=== PATIENT | male | born 1995 | race Caucasian/White ===

== ENCOUNTER 2017-12-09 01:58 | Emergency (ER) | payer SELFPAY ==
[~2017-12-09] VITALS: Ht 180.3 cm; Wt 124.7 kg
[~2017-12-09 01:58] MED LIST: AMOX500T10 PO; HYDR-3078 PO; LORA-1456 PO
--- NOTE | 2017-12-09 02:04 | ER Report ---
History and Physical Time Seen By MD: 02:04 HPI/ROS CHIEF COMPLAINT: Suicidal attempt, overdose. The bottle of NyQuil HISTORY OF PRESENT ILLNESS: 22-year-old male brought in by a friend with concerns about suicidal ideation. Patient admits he drank a bottle of NyQuil that was nearly full approximate 2 hours ago. Patient reports he's been depressed for some time. He states he's been having financial problems. Patient denies alcohol ingestion or other substances. Patient denies vomiting. REVIEW OF SYSTEMS: Respiratory: No cough, no dyspnea. Cardiovascular: No chest pain, no palpitations. Gastrointestinal: No vomiting, no abdominal pain. Musculoskeletal: No back pain. Allergies: Coded Allergies: No Known Drug Allergies (Verified , 12/09/17) Home Meds Reported Medications Acetaminophen With Codeine # 3 (TYLENOL WITH CODEINE #3 TABLET) 1 Each Tablet, 1 EACH PO Q4-6H Y for PAIN, TAB 12/09/17 Cephalexin Monohydrate (CEPHALEXIN) 500 Mg Cap, 500 MG PO TID, CAP 12/09/17 Discontinued Reported Medications Acetaminophen (TYLENOL) 325 Mg Tablet, 325 MG PO, TAB 12/09/17 Discontinued Scripts Amoxicillin 500 Mg Tab (AMOXICILLIN 500 MG TAB) 500 Mg Tablet, 1 TAB PO Q8H, # 21 TAB Prov:DARIEL MCKEEP 11/06/17 Past Medical/Surgical History Anxiety Reviewed Nurses Notes: Yes Old Medical Records Reviewed: Yes Hx Substance Use Disorder: Yes (dwight) Constitutional Vital Sign - Last 24 Hours 12/09/17 12/09/17 12/09/17 12/09/17 02:16 02:30 02:40 03:00 Temp 98.2 Pulse 75 ??? 75 Resp 16 7 B/P (MAP) 147/88 132/87 (102) 131/93 (106) Pulse Ox 96 96 12/09/17 12/09/17 12/09/17 12/09/17 03:15 03:30 03:45 04:00 Pulse 66 51 61 53 Resp 13 B/P (MAP) 111/61 (78) 130/87 (101) Pulse Ox 96 94 97 94 12/09/17 12/09/17 12/09/17 12/09/17 04:15 04:30 04:45 05:00 Pulse ??? 51 54 ??? Resp 48 55 B/P (MAP) 132/96 (108) Pulse Ox 95 96 Physical Exam General Appearance: The patient is alert, has no immediate need for airway protection and no current signs of toxicity. Vital signs stable, afebrile, pulse ox normal. HEENT: Pupils equal and round no injection. Oropharynx no redness or exudate, mucous. Membranes are moist Respiratory: Chest is non tender, lungs are clear to auscultation. Cardiac: regular rate and rhythm Gastrointestinal: Abdomen is soft and non tender, no masses, bowel sounds normal. Musculoskeletal: Neck: Neck is supple and non tender. Extremities have full range of motion and are non tender. Skin: No rashes or lesions. DIFFERENTIAL DIAGNOSIS: After history and physical exam differential diagnosis was considered for depression including functional and major depression, situational depression, medication side effect, suicidal ideation, suicidal attempt, overdose, drugs and alcohol abuse. Medical Decision Making Data Points Result Diagram: 12/09/17 0235 12/09/17 0235 Laboratory Hematology Test 12/09/17 02:35 12/09/17 02:41 Red Blood Count 5.35 M/uL (4.00-5.60) Mean Corpuscular Volume 85.6 fL (80.0-96.0) Mean Corpuscular Hemoglobin 29.9 pg (26.0-33.0) Mean Corpuscular Hemoglobin Concent 34.9 g/dL (32.0-36.0) Red Cell Distribution Width 14.0 % (11.5-14.5) Mean Platelet Volume 6.4 fL (7.2-11.1) Neutrophils (%) (Auto) 59.9 % (39.4-72.5) Lymphocytes (%) (Auto) 30.1 % (17.6-49.6) Monocytes (%) (Auto) 8.8 % (4.1-12.4) Eosinophils (%) (Auto) 0.6 % (0.4-6.7) Basophils (%) (Auto) 0.6 % (0.3-1.4) Nucleated RBC Relative Count (auto) 0.0 /100WBC Neutrophils # (Auto) 7.6 K/uL (2.0-7.4) Lymphocytes # (Auto) 3.8 K/uL (1.3-3.6) Monocytes # (Auto) 1.1 K/uL (0.3-1.0) Eosinophils # (Auto) 0.1 K/uL (0.0-0.5) Basophils # (Auto) 0.1 K/uL (0.0-0.1) Nucleated RBC Absolute Count (auto) 0.00 K/uL Sodium Level 139 mmol/L (137-145) Potassium Level 3.8 mmol/L (3.5-5.0) Chloride Level 104 mmol/L (98-107) Carbon Dioxide Level 24 mmol/L (22-30) Blood Urea Nitrogen 12 mg/dl (9-21) Creatinine 0.70 mg/dl (0.66-1.25) Glomerular Filtration Rate Calc > 60.0 Random Glucose 103 mg/dl (75-110) Calcium Level 9.5 mg/dl (8.4-10.2) Magnesium Level 1.7 mg/dl (1.7-2.2) Total Bilirubin 0.5 mg/dl (0.2-1.3) Aspartate Amino Transf (AST/SGOT) 41 U/L (0-35) Alanine Aminotransferase (ALT/SGPT) 78 U/L (0-56) Alkaline Phosphatase 78 U/L (0-126) Total Protein 7.0 gm/dl (6.3-8.2) Albumin 3.9 g/dl (3.5-5.0) Thyroid Stimulating Hormone (TSH) 2.58 uIU/ml (0.46-4.68) Salicylates Level < 10 mg/L Salicylate Last Dose Date unk Acetaminophen Level 19 ug/ml Serum Alcohol < 10 mg/dl Urine Color Yellow Urine Clarity Clear Urine pH 5.0 pH (4.8-9.5) Urine Specific [place] 1.028 Urine Protein Negative mg/dL (NEGATIVE) Urine Glucose (UA) Negative mg/dL (NEGATIVE) Urine Ketones Negative mg/dL (NEGATIVE) Urine Blood Negative (NEGATIVE) Urine Nitrite Negative (NEGATIVE) Urine Bilirubin Negative (NEGATIVE) Urine Urobilinogen 4.0 mg/dL (0.2-1.9) Urine Leukocyte Esterase Negative (NEGATIVE) Urine RBC None /HPF (0-2/HPF) Urine WBC <1 /HPF (0-5/HPF) Urine Squamous Epithelial Cells None /LPF (</=FEW) Urine Bacteria Negative /HPF (NONE-FEW) Urine Mucus None /HPF (NONE-FEW) Urine Opiates Screen Positive Urine Barbiturates Screen Negative Ur Tricyclic Antidepressants Screen Negative Urine Phencyclidine Screen Negative Urine Amphetamines Screen Negative Urine Benzodiazepines Screen Negative Urine Cocaine Screen Negative Urine Cannabinoids Screen Positive Chemistry Test 12/09/17 02:35 12/09/17 02:41 White Blood Count 12.7 k/uL (4.5-11.0) Red Blood Count 5.35 M/uL (4.00-5.60) Hemoglobin 16.0 g/dL (14.0-18.0) Hematocrit 45.8 % (42.0-52.0) Mean Corpuscular Volume 85.6 fL (80.0-96.0) Mean Corpuscular Hemoglobin 29.9 pg (26.0-33.0) Mean Corpuscular Hemoglobin Concent 34.9 g/dL (32.0-36.0) Red Cell Distribution Width 14.0 % (11.5-14.5) Platelet Count 198 K/uL (150-450) Mean Platelet Volume 6.4 fL (7.2-11.1) Neutrophils (%) (Auto) 59.9 % (39.4-72.5) Lymphocytes (%) (Auto) 30.1 % (17.6-49.6) Monocytes (%) (Auto) 8.8 % (4.1-12.4) Eosinophils (%) (Auto) 0.6 % (0.4-6.7) Basophils (%) (Auto) 0.6 % (0.3-1.4) Nucleated RBC Relative Count (auto) 0.0 /100WBC Neutrophils # (Auto) 7.6 K/uL (2.0-7.4) Lymphocytes # (Auto) 3.8 K/uL (1.3-3.6) Monocytes # (Auto) 1.1 K/uL (0.3-1.0) Eosinophils # (Auto) 0.1 K/uL (0.0-0.5) Basophils # (Auto) 0.1 K/uL (0.0-0.1) Nucleated RBC Absolute Count (auto) 0.00 K/uL Glomerular Filtration Rate Calc > 60.0 Calcium Level 9.5 mg/dl (8.4-10.2) Magnesium Level 1.7 mg/dl (1.7-2.2) Total Bilirubin 0.5 mg/dl (0.2-1.3) Aspartate Amino Transf (AST/SGOT) 41 U/L (0-35) Alanine Aminotransferase (ALT/SGPT) 78 U/L (0-56) Alkaline Phosphatase 78 U/L (0-126) Total Protein 7.0 gm/dl (6.3-8.2) Albumin 3.9 g/dl (3.5-5.0) Thyroid Stimulating Hormone (TSH) 2.58 uIU/ml (0.46-4.68) Salicylates Level < 10 mg/L Salicylate Last Dose Date unk Acetaminophen Level 19 ug/ml Serum Alcohol < 10 mg/dl Urine Color Yellow Urine Clarity Clear Urine pH 5.0 pH (4.8-9.5) Urine Specific [place] 1.028 Urine Protein Negative mg/dL (NEGATIVE) Urine Glucose (UA) Negative mg/dL (NEGATIVE) Urine Ketones Negative mg/dL (NEGATIVE) Urine Blood Negative (NEGATIVE) Urine Nitrite Negative (NEGATIVE) Urine Bilirubin Negative (NEGATIVE) Urine Urobilinogen 4.0 mg/dL (0.2-1.9) Urine Leukocyte Esterase Negative (NEGATIVE) Urine RBC None /HPF (0-2/HPF) Urine WBC <1 /HPF (0-5/HPF) Urine Squamous Epithelial Cells None /LPF (</=FEW) Urine Bacteria Negative /HPF (NONE-FEW) Urine Mucus None /HPF (NONE-FEW) Urine Opiates Screen Positive Urine Barbiturates Screen Negative Ur Tricyclic Antidepressants Screen Negative Urine Phencyclidine Screen Negative Urine Amphetamines Screen Negative Urine Benzodiazepines Screen Negative Urine Cocaine Screen Negative Urine Cannabinoids Screen Positive Toxicology Test 12/09/17 02:35 12/09/17 02:41 Salicylates Level < 10 mg/L Salicylate Last Dose Date unk Acetaminophen Level 19 ug/ml Serum Alcohol < 10 mg/dl Urine Opiates Screen Positive Urine Barbiturates Screen Negative Ur Tricyclic Antidepressants Screen Negative Urine Phencyclidine Screen Negative Urine Amphetamines Screen Negative Urine Benzodiazepines Screen Negative Urine Cocaine Screen Negative Urine Cannabinoids Screen Positive Urinalysis Test 12/09/17 02:41 Urine Color Yellow Urine Clarity Clear Urine pH 5.0 pH (4.8-9.5) Urine Specific [place] 1.028 Urine Protein Negative mg/dL (NEGATIVE) Urine Glucose (UA) Negative mg/dL (NEGATIVE) Urine Ketones Negative mg/dL (NEGATIVE) Urine Blood Negative (NEGATIVE) Urine Nitrite Negative (NEGATIVE) Urine Bilirubin Negative (NEGATIVE) Urine Urobilinogen 4.0 mg/dL (0.2-1.9) Urine Leukocyte Esterase Negative (NEGATIVE) Urine RBC None /HPF (0-2/HPF) Urine WBC <1 /HPF (0-5/HPF) Urine Squamous Epithelial Cells None /LPF (</=FEW) Urine Bacteria Negative /HPF (NONE-FEW) Urine Mucus None /HPF (NONE-FEW) EKG/Imaging EKG Interpretation 12 lead EK Rhythm: normal sinus rhythm with premature atrial complexes [place]: normal QRS: normal ST segments: normal, no tachycardia, no QRS widening, no QT prolongation ED Course/Re-evaluation Clinical Indication for ER IV: Hydration, IV Access ED Course Patient was admitted to an examination room. H&P was done. The differential diagnoses was considered. On clinical examination, patient appears asymptomatic on arrival. He appears quite withdrawn. He is having dental pain in the right lower jaw. He is currently on amoxicillin. She's been taking a fair amount of Tylenol. His overdose gesture was drinking a bottle of NyQuil. However, his Tylenol level is not elevated beyond 19. On repeated to her stomach 14. Expected level of at least 50-100 with that ingestion of Tylenol. Patient's tox screen is positive for opiates, likely secondary to the codeine was prescribed by his dentist for his tooth pain. There is cannabis noted as well. Patient has an EKG performed, which shows a normal sinus rhythm. Without QRS widening or QT prolongation. It is not tachycardic nor is he hypotensive which you would expect with an antihistamine overdose. Patient was monitored in the emergency department for 3 hours and determined to be medically cleared. Case was discussed with Elizabeth Nelson nurse practitioner a behavioral health who accepts him for admission. Patient was placed on emergency residential by myself. 12/09/2017 5:15:19 am case was discussed with Elizabeth Nelson nurse practitioner a behavioral health service who accepts him for admission to [facility]. Decision to Disposition Date: Dec 09, 2017 Decision to Disposition Time: 02:40 Depart Departure Latest Vital Signs Vital Signs Date Time Temp Pulse Resp B/P (MAP) Pulse Ox O2 Delivery O2 Flow Rate FiO2 12/09/17 05:00 ??? 12/09/17 04:45 55 96 12/09/17 04:30 132/96 (108) 12/09/17 02:16 98.2 Impression: Primary Impression: Suicidal ideation Additional Impressions: Overdose Depression Pain, dental Condition: Improved Disposition: XFER TO [facility] Problem Qualifiers Additional Impressions: Overdose Encounter type: initial encounter Injury intent: intentional self-harm Qualified Codes: T50.902A - Poisoning by unspecified drugs, medicaments and biological substances, intentional self-harm, initial encounter Depression Depression Type: unspecified Qualified Codes: F32.9 - Major depressive disorder, single episode, unspecified RADHA BELTRAN DO Dec 09, 2017 02:04
[2017-12-09] MEDS ORDERED: ACET-1966 PO (02:24)
[2017-12-09] MEDS ORDERED: NS(*) 0.9% 1000 ML BAG 1,000 ML IV ONE (02:29)
[2017-12-09 02:43] LABS: PLATELET COUNT, AUTOMATED 198 K/uL (150-450)
--- NOTE | 2017-12-09 02:54 | EKG ---
FACILITY: [facility] PATIENT NAME: EMERITA ESTRELLA : [id number] MR: [id number] V: [id number] EXAM DATE: ORDERING PHYSICIAN: RADHA BELTRAN TECHNOLOGIST: BING Test Reason : OD NYQUIL Blood Pressure : / mmHG Vent. Rate : 063 BPM Atrial Rate : 063 BPM P-R Int : 156 ms QRS Dur : 102 ms QT Int : 398 ms P-R-T Axes : 044 045 052 degrees QTc Int : 407 ms Sinus rhythm with sinus arrhythmia Otherwise normal ECG When compared with ECG of 10-NOV-2016 02:14, Confirmed by RAFAEL CARLSON ([id number]) on 12/09/2017 6:37:53 AM Referred By: Confirmed By:RAFAEL CARLSON
[2017-12-09 04:30] VITALS: BP 132/96
[2017-12-09] MEDS ORDERED: KETOROLAC 30 MG/ML VIAL IVP ONE (05:20)
[2017-12-09] MEDS ORDERED: CEPH500C24 PO (09:29)
[2017-12-09] MEDS ORDERED: ACET-3017 PO (09:29)
== END 2017-12-09 06:03 ==
LOC: ER 02:40
DX: T50.992A Poisoning by other drugs, medicaments and biological substances, intentional self-harm, initial encounter (principal); F32.9 Major depressive disorder, single episode, unspecified; R45.851 Suicidal ideations; K08.89 Other specified disorders of teeth and supporting structures
CPT/HCPCS: 80305; 80320; 80329; 81001; 83735; 84443; 85025; 93005; 96361; 96374; 99285; J1885; J7030; 82040; 82247; 82310; 82374; 82435; 82565; 82947; 84075; 84132; 84155; 84295; 84450; 84460; 84520

== ENCOUNTER 2017-12-09 05:24 | Inpatient (IN) | payer SELFPAY ==
[~2017-12-09] VITALS: Ht 185.4 cm; Wt 124.7 kg
[~2017-12-09 05:24] MED LIST changes: +ACET-1966 PO
[2017-12-09] MEDS ORDERED: MAG HYD/AL HYD/SIMETH 30ML UDC PO PRN (05:40)
[2017-12-09 06:29] VITALS: BP 146/91
[2017-12-09 08:28] VITALS: BP 145/75
[2017-12-09] MEDS: MULTIVITAMINS TAB PO SCH (08:33)
[2017-12-09] MEDS ORDERED: CEPH500C24 PO (09:29)
[2017-12-09] MEDS ORDERED: ACET-3017 PO (09:29)
[2017-12-09 10:27] VITALS: BP 131/81
[2017-12-09] MEDS ORDERED: NICOTINE CARTRIDGE 1 EA PO PRN (12:05)
[2017-12-09] MEDS: NICOTINE INH SYSTEM 10 MG/INH INH PRN ×2 (12:24→18:20)
[2017-12-09 12:40] VITALS: BP 155/84
[2017-12-09] MEDS: LIDOCAINE 2% VISC SLN 15ML UDC PO PRN ×2 (12:47→17:25)
[2017-12-09] MEDS: CEPHALEXIN MONO 500 MG CAP PO SCH ×2 (13:38→21:16)
--- NOTE | 2017-12-09 14:29 | BHS - Psychiatric Evaluation ---
ER - Title 25 MHE Evaluation Title 25 Evaluation Patient Detained By: Physician (Dr Kavon Garza) Referral Source: Professional: ER Dr. Kavon Garza (Initiated by physician). Date Patient Detained: Dec 09, 2017 Time Patient Detained: 05:06 Date Residential Expires: Dec 12, 2017 Time Residential Expires: 05:08 Legal Status: Police Hold: No Legal Status: Residence: [facility] Resident, State Resident Assessment Data Provided By: Patient, Other Source (REPLACED BY [facility] and [facility] staff) HPI/ROS: Per ER Dr, Dr. Kavon Garza, "22-year-old male brought in by a friend with concerns about suicidal ideation. Patient admits he drank a bottle of NyQuil that was nearly full approximate 2 hours ago. Patient reports he's been depressed for some time. He states he's been having financial problems. Patient denies alcohol ingestion or other substances. Patient denies vomiting." Admit due to SI or Attempt: Yes Suicide Plan: Has Plan with Access Alcohol or Drugs Involved: Yes Is Patient Info Reliable: Yes Is Collateral Info Reliable: Yes (3-81, and physician report) Current Home Psych Meds: Patient reports none. Mental Status Exam General Appearance: Casual, Well Groomed, No Good Eye Contact (Downcast gaze) Speech: Clear, Spontaneous, Normal Rate, Normal Volume (Soft and low volume.) Mood: Dysthmic/Depressed Affect: Sad (Slumped shoulders and sad affect.) Thought Process: Organized Thought Content: Suicidal Ideation (Says, "For 3 seconds, I really was." Says he is not suicidal currently.) Cognition: Alert & Oriented-Person, Alert & Oriented-Place, Alert & Oriented- Time, Gfjft-Bvivonwr-[id number] Memory: Immediate, Recent, Remote Insight Judgment: Poor Hallucinations: Denies Delusions: Denies Current Risk & History Current Dangerous Risk Assessm: Current Suicide Ideation (Denies current plan, but is hopeless without futuristic ideation. Says, "Partly unsure if if will ever get better."), Self-Injurious Behaviors (Pinches self while talking, report biting his hand when he is upset, since age 6.) Past Dangerous Risk Assessm: Suicide Ideation-last 6mo (Says he has had depression with suicidal ideation since high school.), Self-Injurious Behaviors (Bites, digs, and piches self when discussing upsetting topics.) Previous Suicide Attempt: No Previous Attempt Previous Psychiatric Illness: Yes (Depression, patient says he has had this experience since high school. Says he does not like himself, and feels as though his poor self esteem is worse than most individuals.) Previous Diagnosis/Treatment: Saw a counselor in high school that he connected to. Previous Psychiatric Treatment: No Risk Assessment & Disposition Evaluated Risk Assessment: Patient risk is high. Denies current plan, but is hopeless without futuristic ideation. Says, "Partly unsure if if will ever get better." He indicates his tooth pain, homelessness, and financial probs do not seem to be solvable. Patient does not have a mental health therapist, and says "most of the time, I feel very isolated." These factors and patient's acknowledgement that he takes more pain medication faster than is indicated, put patient at risk for harming himself. Impression: Primary Impression: Anxiety Additional Impressions: Cannabis dependence Suicidal ideation Tooth abscess Overdose Meets Mental Illness Req.: Yes Meets Dangerousness Req.: Yes (Patient took more NyQuil than is indicated while thinking about ending his life as an intentional overdose.) Emergency Residential to be: Upheld Decision Comment: Patient Bandar Moss is reporting that he does not see a solution to the problems that felt insurmountable and led him to an intentional overdose. Patient took more NyQuil than is indicated while thinking about ending his life. He is without public health social worker or mental health services to help him address his homelessness and financial despair. In a despairing state, patient has demonstrated he is depressed and impulsive. He needs clinical support and resources, as well as a safe environment. Date of Decision: Dec 09, 2017 Time of Decision: 14:20 Patient is Medically Stable at: Yes Disposition: [facility] Problem Qualifiers ROOPA RAMIREZ LPC Dec 09, 2017 14:29
[2017-12-09] MEDS ORDERED: IBUPROFEN 600 MG TAB PO PRN (22:00)
[2017-12-09] MEDS ORDERED: KETOROLAC TROM 10MG TAB PO PRN (22:05)
[2017-12-09 22:30] VITALS: BP 145/100
[2017-12-09] MEDS: KETOROLAC TROM 10MG TAB PO PRN (23:02)
[2017-12-10 04:26] VITALS: BP 136/86
[2017-12-10 06:17] LABS: PLATELET COUNT, AUTOMATED 175 K/uL (150-450)
[2017-12-10] MEDS: KETOROLAC TROM 10MG TAB PO PRN ×4 (07:38→22:04)
[2017-12-10] MEDS: MULTIVITAMINS TAB PO SCH (08:54)
[2017-12-10] MEDS: CEPHALEXIN MONO 500 MG CAP PO SCH ×3 (08:54→21:44)
[2017-12-10] MEDS: NICOTINE INH SYSTEM 10 MG/INH INH PRN ×2 (08:56→16:25)
[2017-12-10 11:17] VITALS: BP 129/70
--- NOTE | 2017-12-10 12:30 | BHS Progress Note ---
S - Subjective Progress Notes Subjective Patient interacting well this AM, and states his decompensating mood was likely triggered by tooth pain and opiate use. Appetite good, and low mood improving, patient admits to using substances inappropriately throughout his life. Will continue treatment, and avoid starting any psychiatric medications now, as will address as an outpatient after tooth abscess is treated. No other concerns today. Suicidal Ideation: Resolving Homicidal Ideation: None [facility] - Objective Physical Exam Vital Signs Vital Signs Date Time Temp Pulse Resp B/P (MAP) Pulse Ox O2 Delivery O2 Flow Rate FiO2 12/10/17 11:17 98.4 56 129/70 (89) 94 Room Air 12/10/17 04:26 16 Hematology Test 12/09/17 13:08 12/10/17 06:14 Acetaminophen Level < 10 ug/ml Red Blood Count 5.13 M/uL (4.00-5.60) Mean Corpuscular Volume 85.0 fL (80.0-96.0) Mean Corpuscular Hemoglobin 30.2 pg (26.0-33.0) Mean Corpuscular Hemoglobin Concent 35.5 g/dL (32.0-36.0) Red Cell Distribution Width 13.9 % (11.5-14.5) Mean Platelet Volume 6.3 fL (7.2-11.1) Neutrophils (%) (Auto) 46.7 % (39.4-72.5) Lymphocytes (%) (Auto) 42.9 % (17.6-49.6) Monocytes (%) (Auto) 9.4 % (4.1-12.4) Eosinophils (%) (Auto) 0.5 % (0.4-6.7) Basophils (%) (Auto) 0.5 % (0.3-1.4) Nucleated RBC Relative Count (auto) 0.0 /100WBC Neutrophils # (Auto) 5.7 K/uL (2.0-7.4) Lymphocytes # (Auto) 5.3 K/uL (1.3-3.6) Monocytes # (Auto) 1.2 K/uL (0.3-1.0) Eosinophils # (Auto) 0.1 K/uL (0.0-0.5) Basophils # (Auto) 0.1 K/uL (0.0-0.1) Nucleated RBC Absolute Count (auto) 0.01 K/uL Sodium Level 141 mmol/L (137-145) Potassium Level 3.8 mmol/L (3.5-5.0) Chloride Level 106 mmol/L (98-107) Carbon Dioxide Level 25 mmol/L (22-30) Blood Urea Nitrogen 8 mg/dl (9-21) Creatinine 0.70 mg/dl (0.66-1.25) Glomerular Filtration Rate Calc > 60.0 Random Glucose 86 mg/dl (75-110) Calcium Level 9.6 mg/dl (8.4-10.2) Total Bilirubin 0.7 mg/dl (0.2-1.3) Aspartate Amino Transf (AST/SGOT) 27 U/L (0-35) Alanine Aminotransferase (ALT/SGPT) 65 U/L (0-56) Alkaline Phosphatase 72 U/L (0-126) Total Protein 6.6 gm/dl (6.3-8.2) Albumin 3.5 g/dl (3.5-5.0) Chemistry Test 12/09/17 13:08 12/10/17 06:14 Acetaminophen Level < 10 ug/ml White Blood Count 12.3 k/uL (4.5-11.0) Red Blood Count 5.13 M/uL (4.00-5.60) Hemoglobin 15.5 g/dL (14.0-18.0) Hematocrit 43.6 % (42.0-52.0) Mean Corpuscular Volume 85.0 fL (80.0-96.0) Mean Corpuscular Hemoglobin 30.2 pg (26.0-33.0) Mean Corpuscular Hemoglobin Concent 35.5 g/dL (32.0-36.0) Red Cell Distribution Width 13.9 % (11.5-14.5) Platelet Count 175 K/uL (150-450) Mean Platelet Volume 6.3 fL (7.2-11.1) Neutrophils (%) (Auto) 46.7 % (39.4-72.5) Lymphocytes (%) (Auto) 42.9 % (17.6-49.6) Monocytes (%) (Auto) 9.4 % (4.1-12.4) Eosinophils (%) (Auto) 0.5 % (0.4-6.7) Basophils (%) (Auto) 0.5 % (0.3-1.4) Nucleated RBC Relative Count (auto) 0.0 /100WBC Neutrophils # (Auto) 5.7 K/uL (2.0-7.4) Lymphocytes # (Auto) 5.3 K/uL (1.3-3.6) Monocytes # (Auto) 1.2 K/uL (0.3-1.0) Eosinophils # (Auto) 0.1 K/uL (0.0-0.5) Basophils # (Auto) 0.1 K/uL (0.0-0.1) Nucleated RBC Absolute Count (auto) 0.01 K/uL Glomerular Filtration Rate Calc > 60.0 Calcium Level 9.6 mg/dl (8.4-10.2) Total Bilirubin 0.7 mg/dl (0.2-1.3) Aspartate Amino Transf (AST/SGOT) 27 U/L (0-35) Alanine Aminotransferase (ALT/SGPT) 65 U/L (0-56) Alkaline Phosphatase 72 U/L (0-126) Total Protein 6.6 gm/dl (6.3-8.2) Albumin 3.5 g/dl (3.5-5.0) Toxicology Test 12/09/17 13:08 Acetaminophen Level < 10 ug/ml Muscle Strength and Tone: WNL Gait and Station: Steady [facility] Medications Reviewed: Side Effects, Benefits of Medication, Risks Allergies Reviewed: Yes Mental Status Exam General Appearance: Casual, Well Groomed, No Good Eye Contact (Downcast gaze), Cooperative, Polite, Good Interaction, No Unkept, No Tearful, No Psychomotor Agitation, No Psychomotor Retardation, No Bizarre Mannerisms, No Tics Speech: Clear, Spontaneous, Normal Rate, Normal Rhythm, Normal Volume (Soft and low volume.), Normal Tone, No Garbled, No Rambling, No Inappropriate Mood: Dysthmic/Depressed (improving some) Affect: Sad (Slumped shoulders and sad affect.), No Flat, No Withdrawn, No Tearful, No Anxious, No Agitated Thought Process: Organized, Logical, Goal Directed, No Loose Associations, No Flight of Ideas Thought Content: Suicidal Ideation (resolving ), No Homicidal Ideation, No Delusions, No Auditory Halllucinations, No Visual Hallucinations, No Thought Broadcasting, No Ideas of Reference, No Obsessions, No Compulsions Sensorium: Clear Cognition: Alert & Oriented-Person, Alert & Oriented-Place, Alert & Oriented- Time, Sgsve-[id number]-[id number] Memory: Immediate, Recent, Remote Intelligence: Average Insight Judgment: Poor Result Diagram: 12/10/17 0614 12/10/17 0614 [facility] Assessment and Plan [id number] Encounter Date: Dec 10, 2017 [id number] Encounter Time: 10:30 [facility] Plan: Necessary Precautions, Individual/Group Therapy, Admin/Titrate Meds, Educate Patient Tobacco Medications: Not Appropriate Condition Problems: (1) Adjustment disorder with depressed mood Status: Acute Assessment & Plan: rule out persisting depressive disorder. (2) Cannabis dependence Status: Chronic Condition 1. continue treatment. 2. plan for discharge tomorrow. MANJU TRONCOSO MD Dec 10, 2017 12:30
[2017-12-10 15:55] VITALS: BP 127/68
--- NOTE | 2017-12-10 17:02 | HISTORY AND PHYSICAL ---
DATE OF ADMISSION: December 09, 2017 DATE PATIENT SEEN: December 09, 2017 at 0915 PRESENTING PROBLEM/CHIEF COMPLAINT "I have an infection, a bad tooth. I had some codeine and an antibiotic prescribed for that. I consumed the codeine more than I should have, but then ran out. The depression and anxiety got worse. It made me think of my problems. It all just added up." HISTORY OF PRESENT ILLNESS This is a 22-year-old, single, male who presented to the Emergency Department after having been brought in by a friend due to suicidal ideation. The patient reported that he drank a bottle of Nyquil that was nearly full approximately two hours prior to arrival. The patient reports a longstanding history of depression which has recently worsened with onset of dental pain, financial stressors, and current living situation. The patient denied ingestion of alcohol or other substances. The patient reports that for the last two weeks he has been living in a motel after having been kicked out by his roommates due to the loss of a job and lack of money to pay rent. He is currently not working with last employment reported as working at [employer] for four months, last working two months ago. The patient denies history of inpatient psychiatric hospitalizations or suicide attempts. He denies suicidal ideation at time of initial interview, reporting last suicidal thoughts were at the time of Nyquil overdose. He reports that at that time he did have thoughts of ending his life. He denies outpatient mental health services, although as a child and young adolescent, he had been seen by a school therapist and outpatient mental health providers for self-harm behaviors of biting. The patient reports some ongoing biting behaviors, although he states he has poor memory when this occurs. No evidence of recent biting behaviors on extremities noted. The patient is rating his depression, guilt, and shame an eight on a one to ten scale, ten the worst. He is rating anxiety a four and anger a five. He reports sleep as sufficient. He denies a history of pawan or psychosis. Energy level is low. Appetite is good. He states he is trying to lose weight. He denies a history of eating disorder symptoms. He denies PTSD symptoms. He denies history of physical, emotional, or sexual abuse. The patient was positive for opiates and cannabinoids. He has recently seen a dentist with pain medication prescribed and reports smoking marijuana two times per week. In the past, it was more frequent. He denies regular alcohol use. The patient states members of the [employer] are currently helping him pay the motel bill. His father currently lives in [place], and he does maintain contact with him. The patient was emergently detained in the Emergency Department and transferred to the Behavioral Health Unit for further evaluation and treatment. MENTAL HEALTH HISTORY The patient denies history of inpatient psychiatric hospitalizations or suicide attempts. He denies previously taking psychotropics. He has a history of being seen as a child and early adolescent for biting behaviors by school counselors and private mental health providers. No recent mental health treatment. FAMILY PSYCHIATRIC HISTORY The patient reports that members of his father's family have attempted suicide. He reports that is every male with the exception of his father for five generations. He believes there may have been one completed suicide. MEDICAL HISTORY 1. He denies history of medical concerns or major surgeries. 2. He currently has a right tooth infection. He has been seen by a dentist with followup appointment scheduled this week. CURRENT MEDICATIONS Amoxicillin 500 mg one tab every eight hours. ALLERGIES No known drug allergies. SOCIAL HISTORY The patient was born in [place], [place]. He moved from [place] at age [age]. He was raised primarily by his father. He states that his mother is . She when he was [age] years old after having her windpipe crushed. The patient has three younger half-sisters. His father has remarried and currently lives in [place], [place]. The patient moved to [place] and previously lived in [place], [place]. He reports he is a high school dropout , working on his GED. Highest grade completed was 11th grade. His parents were not at the time of his . He has most recently worked at [employer] two months ago. He was employed for four months. 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 He is currently living in a hotel the last two weeks. Prior to that, he lived in an apartment, although lost his job and could not pay his bills. His roommates kicked him out, and he fell into a slump with increased depression and anxiety. Members of the [employer] have helped with funding the motel room through the end of November. He reports he has never been . He has no children. He is heterosexual. He denies a history of physical, emotional, or sexual abuse. LEGAL HISTORY The patient reports that he has one charge of trying to steal a TV. He had a $ 700 fine and spent one night in alf. He denies being on probation or parole. He denies history of felonies or DUIs. SUBSTANCE ABUSE HISTORY The patient reports that he drinks approximately one time per week. Drink of choice would be rum and Coke. He usually drinks one drink. He denies heavy alcohol use. Cannabis started at age 19. He reports in the past he was a heavier user, although currently uses two times a week. He is positive for cannabinoids. He denies history of other illicit drug use in the past. PHYSICAL EXAMINATION Please see emergency room notes for physical exam. VITAL SIGNS: At time of admission included temperature of 99.2, pulse of 60, respiratory rate 16, blood pressure 146/91, pulse oximetry 94% on room air. LABORATORY DATA CBC with elevated white blood count, 12.7, MPV low at 6.4. Urobilinogen elevated at 4.0. AST elevated at 41, ALT elevated at 78. Thyroid stimulating hormone is pending. Urine screen positive for opioids and cannabinoids. Negative for barbiturates, tricyclics, phencyclidine, amphetamines, benzodiazepines, and cocaine. Serum alcohol level less than 10, acetaminophen level 19 with repeat down to 14. We will continue to monitor. MENTAL STATUS EXAMINATION GENERAL APPEARANCE, BEHAVIOR, AND ATTITUDE: This is a calm, cooperative, 22- year-old, male making poor eye contact at time of interview. He appears depressed. No bizarre mannerisms or tics. SPEECH: Soft spoken. Regular rate, rhythm, and tone. MOOD: Depressed. AFFECT: Minimally constricted, mood congruent. THOUGHT PROCESSES: Logical, goal directed. No loose issues. No flight of ideas. THOUGHT CONTENT: Free of auditory or visual hallucinations, ideas of reference , thought broadcasting, delusions, obsessions, or compulsions. He is denying current suicidal or homicidal ideations. SENSORIUM: Clear. COGNITION: Alert and oriented to person, placed, time, and situation. MEMORY: Immediate, recent, and remote estimated intact. INTELLIGENCE: Average based on interview. INSIGHT AND JUDGMENT: Considered fair. The patient was agreeable with need for hospitalization. ASSESSMENT This is a 22-year-old, single, male who was brought in by a friend after reporting suicidal ideation with ingestion of a bottle of Nyquil. Acetaminophen level initially 19, lowering to 14. We will continue to monitor. At the time of initial interview, the patient denies suicidal or homicidal ideation. He reports recent stress of current living situation as living in a motel, financial stressors, joblessness, and recent onset of right tooth infection causing a great amount of discomfort. He denies previously taking psychotropics, although reports a longstanding history of depression. He reports recently his depression and anxiety worsened. He was given pain medications by a dentist and ran out as he was taking more than prescribed amounts due to ongoing dental pain. He is currently on antibiotics and has a followup appointment this week. He denies a history of inpatient psychiatric hospitalizations or suicide attempts. He uses cannabis two times per week. He denies regular alcohol use. He denies use of other illicit drugs. He was emergently detained by emergency room physician and transferred to the Behavioral Health Unit for further evaluation and treatment. PLAN 1. We will admit to the unit. 2. Necessary precautions will be implemented. 3. Individual and group therapy will be initiated. 4. Medications will be considered and titrated accordingly. 5. Currently, the patient is going to be monitored closely due to reported overdose. 6. Contact outpatient dentist with treatment recommendations. 7. Labs and imaging as appropriate. 8. Estimated length of stay three to five days. DIAGNOSES PER DSM-V 1. Adjustment disorder with depressed mood, suicidal ideation. 2. Persistent depressive disorder. 3. Cannabis use disorder, mild. 4. Problems related to financial stressors, current living situation, joblessness, and onset of dental issues. MARI
[2017-12-10 20:18] VITALS: BP 127/68
[2017-12-11 05:44] VITALS: BP 117/75
[2017-12-11] MEDS: KETOROLAC TROM 10MG TAB PO PRN (07:27)
[2017-12-11] MEDS: CEPHALEXIN MONO 500 MG CAP PO SCH (08:37)
[2017-12-11] MEDS: MULTIVITAMINS TAB PO SCH (08:37)
[2017-12-11] MEDS: NICOTINE INH SYSTEM 10 MG/INH INH PRN (08:39)
[2017-12-11] MEDS ORDERED: MULT-1379 PO (09:58)
[2017-12-11] MEDS ORDERED: NIC10R INH (09:58)
[2017-12-11] MEDS ORDERED: [UNRECOGNIZED DRUG - OTHER] PO (09:59)
[2017-12-11] MEDS ORDERED: OMEG-23 PO (10:01)
[2017-12-11] MEDS ORDERED: CHOL10005 PO (10:01)
[2017-12-11 13:28] VITALS: BP 119/79
--- NOTE | 2017-12-12 19:30 | DISCHARGE SUMMARY ---
DATE OF ADMISSION December 09, 2017 DATE OF DISCHARGE December 11, 2017 FINAL DIAGNOSES PER DSM-V Adjustment disorder with depressed mood. Persisting depressive disorder. Cannabis use disorder moderate. Rule out cannabis-related disorder. Patient currently suffering from dental pain. Employment and financial stressors and housing stressors. REASON FOR ADMISSION This 22-year-old male was interviewed for this discharge summary on the morning of December 11, 2017 at approximately 0900 hours. Please see H and P for full details. This is a cooperative, pleasant 22-year-old male who may suffer from some mild autism-type symptoms as well as persisting depressive disorder. Patient admitted after proclaiming suicidal thoughts in relation to increasing tooth pain. Patient admits to incorrectly taking the opiates given to him by a dentist and then running out of them and experiencing more pain. Patient reports that although he gives a history of persisting depressive disorder, current dental condition where patient is believed to be requiring a root canal is what drove the patient over the edge. Patient was very cooperative and pleasant throughout his stay. Dental appointment was set for patient to go through needed root canal procedure. Patient's mood continued to improve, remained cooperative on the unit, and patient's mood again improved. No further suicidal ideation noted. PHYSICAL EXAMINATION GENERAL: This is a 22-year-old male in no acute medical distress. Patient having notably been seen for a tooth abscess on November 06, 2017 in the ER. VITAL SIGNS: At the time of admission to the emergency room, temperature 98.2, pulse 75, respiratory rate 16, blood pressure 147/88, pulse oximetry 96 on room air. Upon discharge from the Behavioral Health Unit, temperature 98.2, pulse 86 , respiratory rate 16, blood pressure 119/79 and pulse oximetry 93 on room air. LABORATORY DATA CBC on December 10, 2017 notable for WBCs elevated at 12.3. Chemistry panel notable for an ALT slightly elevated at 65. Toxicology screen: Nondetectable acetaminophen level, positive for cannabis, positive for opiates, and previous acetaminophen level rising as high as 19 in this patient who stated he was taking excessive DayQuil. Serum alcohol less than 10. Urinalysis did now urobilinogen present. TSH 2.58. MENTAL STATUS EXAMINATION AT THE TIME OF DISCHARGE GENERAL APPEARANCE, BEHAVIOR AND ATTITUDE: A polite, cooperative 22-year-old male in no acute distress, making good eye contact. No bizarre mannerisms or tics. SPEECH: Within normal limits, regular rate, rhythm volume and tone. MOOD: Described as improved and okay. AFFECT: Minimally constricted and mood congruent overall. THOUGHT PROCESSES: Goal directed. Patient would discharge to the dental office. Logical. No loose associations or flight of ideas. THOUGHT CONTENT: Free of auditory or visual hallucinations, ideas of reference , thought broadcastings, delusions, obsessions, compulsions. Patient adamantly denying suicidal or homicidal ideation. SENSORIUM: Clear. COGNITION: Alert and oriented to person, place, time and situation. MEMORY: Immediate, recent and remote estimated intact. INTELLIGENCE: Average based on interview. INSIGHT AND JUDGMENT: Considered grossly intact in the absence of substance use and resolution of dental problem. RESULTS OF TESTING IMAGING: None. LABORATORY DATA: See above. CONSULTATIONS: None. TREATMENT Patient received medications, participated in individual and group therapy. HOSPITAL COURSE Patient was calm and cooperative throughout his stay. No parasuicidal behaviors were seen. Patient was placed on an emergency detainment and will be followed by the [facility] program. Patient will try to find resolution of dental symptoms through outpatient dental visit immediately upon discharge. From there patient will seek outpatient treatment for further evaluation of need for potential medications and will participate in outpatient therapy. CONDITION OF PATIENT ON DISCHARGE Stable. Considered minimal risk to himself or others and appropriate for outpatient care. DISPOSITION Patient discharged to home in care of outpatient services. Patient would stop all cannabis, follow up with dental visit and was given the crisis line should symptoms return. MEDICATIONS AT THE TIME OF DISCHARGE 1. Vitamin D3 1000 international units daily. 2. Multivitamin with minerals daily. 3. Nicotine replacement over the counter as needed. 4. [place]-3 fish oil 1000 mg daily. 5. Patient would stop cephalexin until seen by outpatient dentist on day of discharge to see what medications would continue. 6. Patient would stop opiates for pain use as well until further treatment by dentist. Risks, benefits and alternatives of above discharge plan were discussed. Informed consent was given to proceed with above discharge plan by this competent patient. Patient's father aware of discharge plan by phone. MARI
== END 2017-12-11 12:51 | disposition home or self-care (01) | DRG 881 ==
LOC: UNDOADMIN 05:24 → BHS 05:24
PROVIDERS: ADMIT Nurse Practitioner Psychiatric/Mental Health; ATTEND Nurse Practitioner Psychiatric/Mental Health
DX: F43.21 Adjustment disorder with depressed mood (principal); R45.851 Suicidal ideations; F34.1 Dysthymic disorder; T48.4X2A Poisoning by expectorants, intentional self-harm, initial encounter; K04.7 Periapical abscess without sinus; F12.20 Cannabis dependence, uncomplicated; F11.10 Opioid abuse, uncomplicated; Y92.59 Other trade areas as the place of occurrence of the external cause; Z56.0 Unemployment, unspecified; Z91.5 Personal history of self-harm; Z81.8 Family history of other mental and behavioral disorders; Z59.0 Homelessness
CPT/HCPCS: 36415; 80329; 82040; 82247; 82310; 82374; 82435; 82565; 82947; 84075; 84132; 84155; 84295; 84450; 84460; 84520; 85025; 90853